=== PATIENT | male | born 1950 | race Caucasian/White ===

== ENCOUNTER 2018-11-14 09:47 | Emergency (ER) | payer MEDICARE, OTHER ==
[2018-11-14 10:06] VITALS: BP 167/98
[2018-11-14] MEDS ORDERED: Aspirin 81 MG Tab.Chew PO ONE (10:14)
[2018-11-14] MEDS ORDERED: Diltiazem IR 30 MG Tab PO ONE ×2 (10:14→11:30)
--- NOTE | 2018-11-14 10:21 | EDM.PDOC ---
ED HPI GENERAL MEDICAL PROBLEM - General Chief Complaint: Cardiovascular Problem Stated Complaint: A FIB Time Seen by Provider: 11/14/18 10:05 Source of Information: Reports: Patient, RN History Limitations: Reports: Other (limited records) - History of Present Illness INITIAL COMMENTS - FREE TEXT/NARRATIVE: 68 yo male presents with afib since early in the weekend. Has very mild chest tightness as his only other sx. Last had sustained afib about 25 hrs ago. Is aware of short periods of irregularity since. Is on a baby aspirin daily. No meds for rate control. [facility]es [facility] in [place]. 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: Aspirin (daily 81 mg) Chest Pain Score (Numeric/FACES): 3 - Related Data Allergies Allergy/AdvReac Type Severity Reaction Status Date / Time atenolol Allergy Syncope Verified 11/14/18 10:20 lisinopril AdvReac Cough Verified 11/14/18 10:20 Home Meds: Home Meds Ascorbic Acid [C-500] 2 tab PO DAILY 04/24/13 [History] Cholecalciferol (Vitamin D3) [Vitamin D3] 2 tab PO DAILY 04/24/13 [History] Fish Oil/DHA/EPA [Fish Oil 1,200 MG] 1 each PO DAILY 04/24/13 [History] Ibuprofen [Advil] 200 mg PO ASDIRECTED PRN 04/24/13 [History] Losartan [Cozaar] 50 mg PO BID 04/24/13 [History] Mag Oxide/D3/Turmeric Rt Xt [Magnesium-Vit D3-Turmeric Cap] 250 mg PO DAILY 01/27 [History] Ubidecarenone [Coenzyme Q10] 10 mg PO DAILY 04/24/13 [History] Aspirin 1 tab PO DAILY 11/14/18 [History] Diltiazem HCl [Cardizem Cd] 240 mg PO ASDIRECTED #30 cap.er.24h 11/14/18 [Rx] Social & Family History - Tobacco Use Smoking Status *Q: Never Smoker - Recreational Drug Use Recreational Drug Use: No ED ROS GENERAL - Review of Systems Review Of Systems: See Below Constitutional: Reports: No Symptoms HEENT: Reports: No Symptoms Respiratory: Reports: No Symptoms Cardiovascular: Reports: Chest Pain (mild tightness), Palpitations GI/Abdominal: Reports: No Symptoms : Reports: No Symptoms Musculoskeletal: Reports: No Symptoms Skin: Reports: No Symptoms Neurological: Reports: No Symptoms ED EXAM, GENERAL - Physical Exam Exam: See Below Exam Limited By: No Limitations General Appearance: Alert, WD/WN, No Apparent Distress Eye Exam: Bilateral Eye: Normal Inspection Ears: Normal External Exam, Normal Canal, Hearing Grossly Normal Ear Exam: Bilateral Ear: Auricle Normal, Canal Normal Nose: Normal Inspection, No Blood Throat/Mouth: Normal Inspection, Normal Lips, Normal Oropharynx, Normal Voice, No Airway Compromise Head: Atraumatic, Normocephalic Neck: Normal Inspection Respiratory/Chest: No Respiratory Distress, Lungs Clear, Normal Breath Sounds, No Accessory Muscle Use Cardiovascular: Tachycardia, Irregularly Irregular GI/Abdominal: Normal Bowel Sounds, Soft, Non-Tender, No Distention Neurological: Alert, Oriented, CN II-XII Intact, Normal Cognition, No Motor/ Sensory Deficits Psychiatric: Normal Affect, Normal Mood Skin Exam: Warm, Dry, Intact, Normal Color, No Rash EKG INTERPRETATION EKG Date: 11/14/18 Time: 09:55 Rhythm: A-Fib Rate (Beats/Min): 113 [place]: Normal P-Wave: Present QRS: Normal ST-T: Normal QT: Normal Comparison: NA - No Prior EKG Course - Vital Signs Last Recorded V/S: Last Vital Signs Temp 35.8 C 11/14/18 10:09 Pulse 112 H 11/14/18 10:09 Resp 16 11/14/18 10:09 BP 167/98 H 11/14/18 10:09 Pulse Ox 95 11/14/18 10:09 - Orders/Labs/Meds Orders: Active Orders 24 hr Category Date Time Status Cardiac Monitoring [RC] .As Directed Care 11/14/18 10:01 Active EKG Documentation Completion [RC] ASDIRECTED Care 11/14/18 10:08 Active EKG 12 Lead [EK] Routine Ther 11/14/18 10:08 Ordered Labs: Laboratory Tests 11/14/18 11/14/18 Range/Units 10:27 10:27 WBC 7.0 (4.5-11.0) K/uL RBC 5.32 (4.30-5.90) M/uL Hgb 15.6 H (12.0-15.0) g/dL Hct 47.8 (40.0-54.0) % MCV 90 (80-98) fL MCH 29 (27-31) pg MCHC 33 (32-36) % Plt Count 201 (150-400) K/uL Sodium 135 L (140-148) mmol/L Potassium 4.7 (3.6-5.2) mmol/L Chloride 100 (100-108) mmol/L Carbon Dioxide 27 (21-32) mmol/L Anion Gap 12.7 (5.0-14.0) mmol/L BUN 16 (7-18) mg/dL Creatinine 0.8 (0.8-1.3) mg/dL Est Cr Clr Drug Dosing 89.98 mL/min Estimated GFR (MDRD) > 60 (>60) Glucose 120 H (74-106) mg/dL Calcium 9.5 (8.5-10.1) mg/dL Troponin I < 0.017 (0.000-0.056) ng/mL TSH, Ultra Sensitive 1.178 (0.358-3.740) uIU/mL Meds: Medications Discontinued Medications Generic Name Dose Route Start Last Admin Trade Name Freq PRN Reason Stop Dose Admin Aspirin 324 mg 11/14/18 10:14 11/14/18 10:24 Aspirin PO 11/14/18 10:15 324 mg ONETIME ONE Administration Diltiazem HCl 30 mg 11/14/18 10:14 11/14/18 10:24 Cardizem PO 11/14/18 10:15 30 mg ONETIME ONE Administration Diltiazem HCl 30 mg 11/14/18 11:30 Cardizem PO 11/14/18 11:31 ONETIME ONE Departure - Departure Time of Disposition: 11:40 Disposition: Home, Self-Care 01 Condition: Fair Clinical Impression: Atrial fibrillation with RVR Prescriptions: Diltiazem HCl [Cardizem Cd] 240 mg PO ASDIRECTED #30 cap.er.24h Instructions: Atrial Fibrillation, [id number] Referrals: PCP,None [Primary Care Provider] - Forms: ED Department Discharge Additional Instructions: Increase your aspirin to 324 mg daily, take with food. Take Cardizem CD 240 mg every day with your evening meal. Recheck with a local provider of your choice to get established and to discuss anticoagulation due to your afib. Return here as needed. - My Orders Last 24 Hours: My Active Orders 11/14/18 10:01 Cardiac Monitoring [RC] .As Directed 11/14/18 10:08 EKG Documentation Completion [RC] ASDIRECTED EKG 12 Lead [EK] Routine - Assessment/Plan Last 24 Hours: My Active Orders 11/14/18 10:01 Cardiac Monitoring [RC] .As Directed 11/14/18 10:08 EKG Documentation Completion [RC] ASDIRECTED EKG 12 Lead [EK] Routine
== END 2018-11-14 11:54 | disposition home or self-care (01) ==
LOC: JP.ED 09:47
DX: I48.91 Unspecified atrial fibrillation (principal); Z88.8 Allergy status to other drugs, medicaments and biological substances; Z79.82 Long term (current) use of aspirin
CPT/HCPCS: 36415; 80048; 84443; 84484; 85027; 93005; 99284; A9270

== ENCOUNTER 2024-01-18 16:49 | Emergency (ER) | payer MEDICARE, OTHER ==
[2024-01-18 17:41] VITALS: BP 202/126; PULSE 93
== END 2024-01-18 18:22 | disposition home or self-care (01) ==
LOC: JP.ED 16:49
DX: R04.0 Epistaxis (principal); I10 Essential (primary) hypertension; I48.91 Unspecified atrial fibrillation; Z90.49 Acquired absence of other specified parts of digestive tract; Z79.82 Long term (current) use of aspirin; Z79.899 Other long term (current) drug therapy; Z88.8 Allergy status to other drugs, medicaments and biological substances
CPT/HCPCS: 99283

== ENCOUNTER 2024-06-20 06:36 | Day surgery (SDC) | payer MEDICARE, OTHER ==
[2024-06-20] MEDS: Lactated Ringers 1,000 ML IV SCH (06:54)
[2024-06-20 07:03] LABS: HEMATOCRIT 48.3 % (38.4-49.7); HEMOGLOBIN 16.6 g/dL (12.9-16.9); MEAN CORPUSCULAR HEMOGLOBIN 30.6 pg (31.6-35.5); MEAN CORPUSCULAR HGB CONC 34.4 g/dL (31.6-35.5); RED BLOOD CELL COUNT 5.43 M/uL (4.14-5.76)
[2024-06-20 07:23] LABS: A/G RATIO 1.2 (1.2-2.2); ALANINE AMINOTRANSFERASE,ALT 35 U/L (12-78); ALBUMIN 4.3 g/dL (3.4-5.0); ALKALINE PHOSPHATASE 49 U/L (46-116); ANION GAP 13.9 mmol/L (5.0-14.0); ASPARTATE AMNIOTRANSFERASE,AST 25 U/L (15-37); BILIRUBIN TOTAL 0.9 mg/dL (0.2-1.0); BLOOD UREA NITROGEN,BUN 15 mg/dL (7-18); CALCIUM 9.3 mg/dL (8.5-10.1); CARBON DIOXIDE,CO2 29 mmol/L (21-32); CHLORIDE,CL 98 mmol/L (100-108); EST CRCL DRUG DOSING (CG) 67.98 mL/min; ESTIMATED GFR 78 mL/min (>60); GLUCOSE RANDOM 122 mg/dL (74-106); POTASSIUM,K 3.9 mmol/L (3.6-5.2); PROTEIN TOTAL,TP 7.9 g/dL (6.4-8.2); SODIUM,NA 137 mmol/L (140-148)
[2024-06-20] MEDS ORDERED: Succinylcholine 200 MG/10 ML MDV ONE (07:28)
[2024-06-20] MEDS ORDERED: Neostigmine Methylsulfate 10 MG/10 ML MDV ONE (07:28)
[2024-06-20] MEDS ORDERED: fentaNYL 250 MCG/5 ML SDV ONE ×2 (07:28→10:42)
[2024-06-20] MEDS ORDERED: Ondansetron 4 MG/2 ML SDV ONE (07:28)
[2024-06-20] MEDS ORDERED: Glycopyrrolate 0.2 MG/ML 5 ML MDV ONE (07:28)
[2024-06-20] MEDS ORDERED: Rocuronium 50 MG/5 ML Vial ONE ×2 (07:28→10:20)
[2024-06-20] MEDS ORDERED: Dexamethasone 4 MG/ML SDV ONE (07:28)
[2024-06-20] MEDS ORDERED: Propofol 200 MG/20 ML SDV ONE (07:28)
[2024-06-20] MEDS ORDERED: Labetalol 20 MG/4 ML Syringe ONE (08:17)
[2024-06-20] MEDS: ceFAZolin 2 GM in Premix Bag 1 BAG IV ONE (08:26)
[2024-06-20] MEDS ORDERED: ePHEDrine 50 MG/ML SDV ONE (08:32)
[2024-06-20] MEDS: Bupivacaine 0.25%/EPINEPHrine 1:200,000 30 ML SDV ONE (08:35)
[2024-06-20] MEDS ORDERED: Lactated Ringers 1,000 ML ONE (08:51)
[2024-06-20] MEDS ORDERED: Sodium Chloride 0.9% 10 ML ONE (11:36)
[2024-06-20] MEDS ORDERED: Naloxone 0.4 MG/ML SDV ONE (11:36)
[2024-06-20] MEDS: Acetaminophen 500 MG Tab PO ONE (13:18)
[2024-06-20] MEDS: oxyCODONE 5 MG Tab PO ONE (13:18)
[2024-06-20 13:47] VITALS: BP 188/90; PULSE 88
== END 2024-06-20 14:50 | disposition home or self-care (01) ==
LOC: JP.SDS 06:36
PROVIDERS: ATTEND Surgery
DX: K40.90 Unilateral inguinal hernia, without obstruction or gangrene, not specified as recurrent (principal); I10 Essential (primary) hypertension; F41.9 Anxiety disorder, unspecified; I48.91 Unspecified atrial fibrillation; Z79.899 Other long term (current) drug therapy; Z88.8 Allergy status to other drugs, medicaments and biological substances
CPT/HCPCS: 36415; 49650; 80053; 85027; A9270; C1781; J0330; J0690; J1100; J1596; J1920; J2310; J2405; J2704; J2710; J3010; J7120; J3490